=== PATIENT | female | born 1955 | race Caucasian/White ===

== ENCOUNTER 2024-06-16 20:54 | Emergency (ER) | payer MEDICARE, OTHER, SELFPAY ==
[2024-06-16 20:56] VITALS: BP 197/100
[2024-06-16] MEDS: BENADRYL 12.5 MG IV (22:10)
[2024-06-16] MEDS: SOLU-CORTEF 200 MG IV (22:10)
[2024-06-16 22:17] VITALS: BP 152/84
[2024-06-16 23:41] VITALS: BP 134/79
[2024-06-17] VITALS: BP 148/70
--- NOTE | 2024-06-17 00:10 | ED.GENMED ---
History of Present Illness
General
Chief Complaint: Abdominal Pain
Time Seen by Provider: 06/16/24 21:23
History of Present Illness
History of Present Illness:
68-year-old female presents the emergency department for evaluation of periumbilical pain that began today. Went to urgent care for evaluation and labs were drawn showing a leukocytosis to 17,000, normal renal function. No prior history of
abdominal surgery. Denies fever, chills, sweats, nausea, vomiting, or diarrhea.
Review of Systems
Review of Systems
Allergies reviewed?: Yes
All Other Systems: ROS reviewed and negative except as documented in HPI and ROS
Phy Exam
Physical Exam
Physical Exam:
GEN: Well appearing, NAD, WDWN
HEENT: Oral mucosa moist, no scleral icterus
Cardiac: Regular rate
Lung: No respiratory distress, no tachypnea
Abdomen: Soft, point tenderness to the left lateral periumbilical abdomen with a palpable nodular density, no rigidity or peritoneal signs, no right lower quadrant tenderness
MSK: No gross deformity or injuries
Skin: Good color, no pallor or jaundice, no rashes
Neuro: AO x3, moves all extremities freely
Psych: Calm, cooperative
Course
Orders/Labs/Results
Orders:
Orders
06/16/24 21:59
CT Abd/Pel (IV only)-[facility] only Urgent
Comment: creat done at prior to arrival 1.1
Reason For Exam: periumbilical pain
Diphenhydramine [Benadryl] 12.5 mg IV NOW STA
Hydrocortisone Sod Succinate [Solu-Cortef] 200 mg IV NOW STA
Vital Signs
Initial and Last Documented VS:
Initial Vital Signs
Temp Pulse Resp BP Pulse Ox
98.9 F 96 18 197/100 100
06/16/24 20:56 06/16/24 20:56 06/16/24 20:56 06/16/24 20:56 06/16/24 20:56
Last Documented Vital Signs
Temp Pulse Resp BP Pulse Ox
98.9 F 86 18 148/70 95
06/16/24 20:56 06/16/24 23:50 06/16/24 23:50 06/17/24 00:00 06/16/24 23:45
MDM/Problems Addressed
MDM/Problems Addressed:
Imaging reassuring, no evidence of acute process. Point tenderness to a palpable abnormality likely represents a small abdominal hernia. Workup reassuring, discharged in stable condition
*Critical Care Note
Total Time (30-74mins, 75-104mins- exclusive of procedures): Not Applicable
ED Attending Note
-
Portions of this chart may have been created with voice recognition software.� Occasional wrong word or��sound alike� substitutions may have occurred due to the inherent limitations of voice recognition software.
Discharge Plan
Departure
Patient Disposition: Home (Routine Discharge)
Date of Disposition: 06/17/24
Time of Disposition: 00:12
Patient with high blood pressure during this ER visit?: No
Discharge Problem:
Abdominal pain, acute, periumbilical
Instructions: Abdominal Pain
Prescriptions:
No Action
atorvastatin 20 mg Tablet
20 mg PO HS
Referrals:
Ronna Caal MD [Family Provider] -
Interventions
Interventions:
*Risk Screen - Suicide Last Done: 06/16/24 22:18
*General Assessment Last Done: 06/16/24 20:56
*Neglect/Abuse Screening Last Done: 06/16/24 22:18
ED- Fall Risk Assessment Last Done: 06/16/24 22:39
*ED COVID-19 Vaccine History Last Done: 06/16/24 20:56
*Nursing Disposition Last Done: 06/17/24 00:18
MF-Acwqju-Sedhgjayyk Assessment Last Done: 06/16/24 23:30
Discharge Date and Time
Discharge Date/Time: 06/17/24 00:18
Print Language: SERBIAN
== END 2024-06-17 00:18 | disposition home or self-care (01) ==
LOC: EMR 20:54
PROVIDERS: EMERGENCY PHYSICIAN Emergency Medicine; FAMILY PHYSICIAN Family Medicine
DX: R10.33 Periumbilical pain (principal)
CPT/HCPCS: 96374; 96375; 99284; 74177; Q9967